=== PATIENT | male | born 1965 | race African-American/Black ===

== ENCOUNTER 2020-05-26 06:58 | Emergency (ER) | payer MEDICARE, OTHER ==
[~2020-05-26] VITALS: Ht 170.2 cm; Wt 77.1 kg
--- NOTE | 2020-05-26 07:18 | NUR ---
BIBS, WANTS VOLUNTARY ADMISSION TO [facility], FEELING SUICIDAL,PLAN TO RUN INTO TRAFFIC, TO ER BED 14, HOOKED TO MONITOR, CHANGED TO HOSP GOWN, SUICIDE PRECAUTION APPLIED. WARM BLANKET PROVIDED, PATIENT AAO x 4. NAD NOTED. SITTER AT BEDSIDE FOR SAFETY
--- NOTE | 2020-05-26 07:30 | NUR ---
URINE SAMPLE COLLECTED AND SENT TO LAB
[2020-05-26 07:45] LABS: BASOPHILS # (AUTO) 0.1 /CMM (0.0-0.2); EOSINOPHILS % (AUTO) 4.3 % (0.0-6.0); HEMATOCRIT 42 % (39-51); LYMPHOCYTES # (AUTO) 2.4 /CMM (0.8-4.8); LYMPHOCYTES % (AUTO) 40.6 % (20.0-44.0); MEAN CORPUSCULAR HGB CONC 34 g/dl (31.0-36.0); MEAN CORPUSCULAR VOLUME 97 fL (80-96); MONOCYTES # (AUTO) 0.7 /CMM (0.1-1.30); MONOCYTES % (AUTO) 11.2 % (2.0-12.0); NEUTROPHILS # (AUTO) 2.5 /CMM (1.8-8.9); NEUTROPHILS % (AUTO) 42.9 % (43.0-81.0); PLATELET COUNT (AUTO) 266 /CMM (150-450); RED BLOOD CELL COUNT(AUTO) 4.29 MIL/uL (4.5-6.0); WHITE BLOOD COUNT (AUTO) 5.8 K/uL (4.3-11.0)
[2020-05-26 07:48] LABS: BILIRUBIN,URINE NEGATIVE (NEGATIVE); COLOR,URINE YELLOW (YELLOW); LEUKOCYTE ESTERASE ,URINE NEGATIVE (NEGATIVE); NITRITE, URINE NEGATIVE (NEGATIVE); PROTEIN,URINE NEGATIVE (NEGATIVE); UGLUCOSE NEGATIVE (NEGATIVE)
[2020-05-26 07:51] LABS: BACTERIA,URINE None seen /HPF (None Seen); RBC,URINE 0-2 /HPF (0-2); SQUAMOUS EPITHELIAL CELL,UR Few /HPF (None Seen); URINE AMORPHOUS PHOSPHATES Few /HPF (None Seen); WBC,URINE 0-2 /HPF (0-3)
[2020-05-26 07:52] LABS: MUCUS,URINE Few /LPF (None Seen)
[2020-05-26 08:05] LABS: CALCIUM, SERUM 9.4 mg/dL (8.5-10.1); CARBON DIOXIDE 30 mmol/L (21-32); CHLORIDE 104 mmol/L (98-107); CREATININE 1.3 mg/dL (0.6-1.3); GLUCOSE 90 mg/dL (74-106); POTASSIUM 4.4 mmol/L (3.5-5.1); SODIUM SERUM 142 mmol/L (136-145); UREA NITROGEN, BLOOD 16 mg/dL (7-18)
[2020-05-26 08:10] LABS: ALANINE AMINOTRANSFERASE 39 U/L (12-78); ALBUMIN 3.5 g/dL (3.4-5.0); ALKALINE PHOSPHATASE 108 U/L (46-116); ASPARTATE AMINOTRANSFERASE 30 U/L (15-37); BILIRUBIN,DIRECT 0.1 mg/dL (0.0-0.2); BILIRUBIN,TOTAL 0.3 mg/dL (0.2-1.0); TOTAL PROTEIN, SERUM 7.3 g/dL (6.4-8.2)
[2020-05-26 08:16] LABS: ACETAMINOPHEN 0 ug/ml (10-30)
[2020-05-26 08:25] LABS: ALCOHOL, BLOOD < 3 mg/dL (0-0)
--- NOTE | 2020-05-26 09:16 | NUR ---
RECEIVED RESULTS FROM LAB: RAPID COVID NEGATIVE\
[2020-05-26] MEDS ORDERED: RISP0.2515 PO (09:58)
[2020-05-26] MEDS ORDERED: MIRT15TA7 PO (09:58)
--- NOTE | 2020-05-26 10:21 | NUR ---
Social Service Consult: Hockey Instructor Consult is requested by ED for a homeless pt with suicidal ideation. Hockey Instructor met with the patient at bedside in the ED bed 14 at 945 am. Patient is a 54-year-old homeless Male. Patient presented to the ED per complaints of suicidal ideation. Patients plan is to run into traffic. Patient is alert and oriented x4.Patient states he has been homeless for a week. Pt is responsive during the assessment. Pt is anxious and in a distress affect. Pt is ungroomed, malodorous, and had proper attire (dirty clothing). Pt has normal speech without any limitations. Pt currently stay in [facility] ([facility] Patient states he has support system [facility] [phone]). Patient reports he consumed ETOH 3 days ago. Patient states smoking tobacco a pack a day. Pt expresses using methamphetamines 5 days ago. Patient reports receiving SDI monthly but refuse to give income details. SW offers voluntary psychiatric hospitalization. Pt is responsive and verbally agrees to voluntary psychiatric hospitalization. Per Pt " I would like to the go to [facility] location". Pt ambulates with no walking assistance and no DME. SW educate and gave pt with proper resources list to the pt. Mental Health resources provided: [facility] [address] [place], [place] [address] ; [facility] [place] [address] [facility] [address], [place], [place] [id number] ; [facility] [address] [place] [address] ; [facility] [address] [place], [place] [id number] . Substance Abuse resources provided included: [facility] Substance Abuse Self-Help line (SASH) ; [facility] [address] [facility] [place]. [place] [id number] ; [facility] [address] [facility] [address] ; [facility] [address] [facility] [place] [address] ; [facility] [address] [facility] [id number] ; [facility] [address] [facility] [address] ; [facility] [address] [facility] [id number] ; [facility] Substance Abuse Help line (SAS[facility] ; [facility] ; [facility]; [facility]; [facility] [place]; [facility] [place]; [facility] [place]; [facility] [place]; [facility] [place]; [facility] [place]; Alcoholics Anonymous -[facility]; [facility] ; Marijuana Anonymous [facility]; Narcotics Anonymous www.na.org. Pt is receptive towards resources and list given by the SW during the assessment. Pt agrees to sign homeless waiver form and placed in pt's chart. SW also met with crisis team (Katerin) and discussed pt will be [facility] Plan: SW referred pt. to [facility] (Eric- outside medical sales representative) ([address] [place] [address]) ([phone] & [phone]) for psychiatric treatment. Hockey Instructor is available upon request.
--- NOTE | 2020-05-26 11:05 | NUR ---
ACCEPTED AT [facility]. ACCEPTING: DR JOHNSON UNIT 2 ROOM 203-A REPORT: [phone] EXT [phone]
--- NOTE | 2020-05-26 11:11 | NUR ---
REPORT GIVEN TO REBA RODRÍGUEZ OF UNIT 2 [facility]
--- NOTE | 2020-05-26 11:13 | NUR ---
TRANSPORT CALLED [facility] ETA 60 MINS.
[2020-05-26 12:16] VITALS: BP 136/89
--- NOTE | 2020-05-26 12:19 | NUR ---
PATIENT PICKED UP BY [facility] IN STABLE CONDITION, PATIENT WILL BW TRANSFERRED TO [facility]. CLINICALS PROVIDED. ALL BELONGINGS BROUGHT WITH THE PATIENT.
== END 2020-05-26 16:56 ==
LOC: ER 07:01 → UNDOADMIN 10:06 → GPS 10:06 → ER 16:56 → UNDODISIN 16:56
DX: R45.851 Suicidal ideations (principal); F15.90 Other stimulant use, unspecified, uncomplicated; Z20.822 Contact with and (suspected) exposure to COVID-19; F17.210 Nicotine dependence, cigarettes, uncomplicated; Z59.0 Homelessness
CPT/HCPCS: 36415; 80048-TC; 80076-TC; 81001; 85025-TC; C9803; G0480